=== PATIENT | male | born 1985 | race Hispanic/Latino ===

== ENCOUNTER 2024-10-19 11:42 | Emergency (ER) | payer OTHER ==
[~2024-10-19] VITALS: Ht 185.4 cm; Wt 106.1 kg
[2024-10-19 12:10] VITALS: PULSE 93; RESP 18; TEMP 97.5
[2024-10-19] MEDS ORDERED: VENTOLIN HFA18 GM INH (14:07)
[2024-10-19] MEDS ORDERED: AMOXICILLIN500 MG PO (14:07)
[2024-10-19 14:23] VITALS: BP 128/72; PULSE 90; RESP 20; TEMP 97.3; O2SAT 98
== END 2024-10-19 14:21 | disposition home or self-care (01) ==
LOC: FSED 12:04
DX: R06.00 Dyspnea, unspecified (principal); R05.9 Cough, unspecified; I10 Essential (primary) hypertension; E11.65 Type 2 diabetes mellitus with hyperglycemia; Z11.52 Encounter for screening for COVID-19; R94.31 Abnormal electrocardiogram [ECG] [EKG]
CPT/HCPCS: 0223U; 71046; 80053; 83880; 85025; 85379; 87400; 93005; 99283